=== PATIENT | male | born 1960 | race Caucasian/White ===

== ENCOUNTER 2025-02-12 21:04 | Emergency (ER) | payer OTHER, SELFPAY ==
[2025-02-12 21:17] VITALS: BP 188/88; PULSE 90; RESP 18; TEMP 38.3; O2SAT 98; BMI 26.4
--- NOTE | 2025-02-12 22:00 | CRLHL7_ITS ---
For Patients: As a result of the Cures Act, medical imaging exams and procedure reports are released immediately into your electronic medical record. You may view this report before your referring provider. If you have questions, please contact your health care provider. INDICATION: Hematuria, fever TECHNIQUE: CT Abdomen and pelvis with i.v. contrast. Coronal and sagittal reformats were obtained. CONTRAST: 95 mL Isovue 370 COMPARISON: None FINDINGS: Lower chest: Mild bibasilar discoid atelectasis is seen. Liver: Unremarkable. Spleen: Unremarkable. Pancreas: Unremarkable. Gallbladder: Unremarkable. 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 The cyst measures up to 1.5 cm. These can be better assessed by outpatient CT urogram. Adrenal: Unremarkable. Bowel: The stomach, small bowel, and colon are unremarkable. The appendix is normal in appearance and size. Vascular: Unremarkable. Lymph: Unremarkable. Peritoneum: Unremarkable. No pneumoperitoneum is seen. No significant ascites is noted. Pelvis: Moderate diffuse bladder wall thickening is noted. A fat containing left inguinal hernia is noted. Soft tissue: Unremarkable. Bone: Unremarkable for age. IMPRESSION: 1. Moderate diffuse bladder wall thickening is noted. This may be due to urinary tract infection or cystitis. Dictated by Aman Carpio MD @ 02/12/2025 11:02:46 PM Please note that all CT scans at this facility use dose modulation, iterative reconstruction, and/or weight-based dosing when appropriate to reduce radiation dose to as low as reasonably achievable. Dictated by: Aman Carpio MD @ 02/12/2025 23:02:50 (Electronically Signed)
[2025-02-12 22:02] LABS: Appearance Urine Clear (Clear); Bilirubin Urine Negative (Negative); Blood Urine 3+ (Negative); Color Urine Yellow (Yellow); Glucose Urine Negative (Negative); Ketones Urine Negative (Negative); Leukocyte Esterase Urine Trace (Negative); Nitrite Urine Negative (Negative); Protein Urine 3+ (Negative); Specific Gravity Urine 1.025 (1.000-1.030); Urobilinogen Urine 0.2 (0.2-1.0)
--- NOTE | 2025-02-12 22:06 | ED_ITS ---
HPI - Male Genitourinary General Date Seen: 02/12/25 Chief complaint: Urogenital Problems, Male Stated complaint: fever, blood in urine Time Seen by Provider: 02/12/25 21:55 Source: patient Mode of arrival: ambulatory Limitations: no limitations History of Present Illness HPI Narrative: Patient is a 64-year-old male presenting to the emergency department for concerns of hematuria, dysuria and fevers. States he started passing shirley blood in his urine tonight and has been having fevers and some dysuria. Was having no symptoms earlier today. Has never had symptoms like this before. No history of UTIs. No history of blood in his urine. Denies abdominal pain, flank pain, chest pain, shortness of breath, lightheadedness, dizziness, weakness, numbness, diarrhea, constipation. No history of smoking. No other concerns noted. Related Data Allergies Allergy/AdvReac Type Severity Reaction Status Date / Time Penicillins Allergy Mild Dizziness Verified 02/12/25 21:20 Review of Systems Status of ROS: Reports: 10 or more systems reviewed and unremarkable except as noted in History and below [facility] Medical History Type 2 diabetes mellitus ?E11.9 - Type 2 diabetes mellitus without complications (ICD-10) Hypertension ?I10 - Essential (primary) hypertension (ICD-10) Social History Smoking Status: Never smoker Second hand tobacco smoke exposure: No How often do you have a drink containing alcohol: never AUDIT-C Alcohol total score: 0 Non-prescribed substance use: denies use Exam Narrative: Exam Narrative: Const: Well-nourished, Well-developed, in no distress Eyes: PERRL, no conjunctival injection, and symmetrical lids HENT: Atraumatic external nose and ears. Moist mucous membranes. Neck: Symmetric, trachea midline, No thyromegaly. CVS: RRR, No murmurs or gallops. Peripheral pulses 2+ and equal in all extremities RESP: Unlabored respiratory effort. Clear to auscultation bilaterally. GI: Nontender/Nondistended, No rebound or guarding. MSK:Extremities w/o deformity, Normal Active ROM Skin: Warm, Dry. No rashes or lesions. Neuro: Normal Muscle tone, No focal neurological deficits. Psych: Awake, Alert, & Oriented x3. Appropriate mood and affect. Const: Vital Signs, click to edit/add: Vital Signs - 24 hr 02/12/25 21:17 02/12/25 22:13 Temperature 100.9 F H 100.9 F H Pulse Rate [Right Pulse Oximeter] 90 Respiratory Rate 18 Blood Pressure [Ri ght Upper Arm] 188/88 H Pulse Oximetry 98 Oxygen Delivery Me thod Room Air Course Vital Signs Vital signs: Initial Vital Signs Temperature 100.9 F H 02/12/25 21:17 Temperature Source Temporal Artery Scan 02/12/25 21:17 Pulse Rate 90 02/12/25 21:17 Respiratory Rate 18 02/12/25 21:17 Blood Pressure 188/88 H 02/12/25 21:17 Blood Pressure Mean 121 H 02/12/25 21:17 Blood Pressure Position Sitting 02/12/25 21:17 Pulse Oximetry 98 02/12/25 21:17 Oxygen Delivery Method Room Air 02/12/25 21:17 Vital Signs Temperature 100.9 F H 02/12/25 21:17 Pulse Rate 90 02/12/25 21:17 Respiratory Rate 18 02/12/25 21:17 Blood Pressure 188/88 H 02/12/25 21:17 Pulse Oximetry 98 02/12/25 21:17 Oxygen Delivery Method Room Air 02/12/25 21:17 Temperature 100.9 F H 02/12/25 22:13 Pulse Rate 90 02/12/25 21:17 Respiratory Rate 18 02/12/25 21:17 Blood Pressure 188/88 H 02/12/25 21:17 Pulse Oximetry 98 02/12/25 21:17 Oxygen Delivery Method Room Air 02/12/25 21:17 Medications Administered Medications: Discontinued Medications Generic Name Dose Route Start Last Admin Trade Name Freq PRN Reason Stop Dose Admin Acetaminophen 650 mg 02/12/25 22:00 02/12/25 22:13 Acetaminophen 325 Mg Tablet PO 02/12/25 22:01 650 mg ONCE ONE Administration MDM - Male Genitourinary MDM Narrative Medical decision making narrative: Patient is a 64-year-old male presenting for hematuria. With the fevers and dysuria most likely is a UTI but will do a CT scan to check for signs of bladder cancer other abnormalities. Will also do a CBC, BMP. Tylenol given for his fever. Patient's lab work returned with elevated white count 14. He now meets SIRS criteria. Due to this lactate and blood cultures were ordered. Patient otherwise appears well and I do not believe fluids are necessary. Urinalysis shows blood but no obvious signs of UTI. Rest was labs shows no concerning findings. CT scan reviewed by myself and the radiologist shows diffuse bladder thickening. With his history this is likely UTI. Patient will be started on antibiotics. Lab Data Labs: Lab Results 02/12/25 02/12/25 02/12/25 Range/Units 21:06 22:05 22:55 WBC 14.01 H (4.50-11.00) K/uL RBC 4.61 (4.30-5.90) m/uL Hgb 14.8 (13.5-17.5) gm/dL Hct 43.2 (37.0-53.0) % MCV 94 (80-100) fL MCH 32 (26-34) pg MCHC 34 (32-36) gm/dL RDW Coeff of Jovani 12.3 (11.5-15.5) % Plt Count 237 (140-440) K/uL Neut % (Auto) 81.4 H (42.0-72.0) % Lymph % (Auto) 9.8 L (20-44) % [place] % (Auto) 8.2 (0.0-11.0) % Eos % (Auto) 0.1 (0.0-7.0) % Baso % (Auto) 0.3 (0.0-3.0) % Neut # (Auto) 11.40 H (1.7-7.0) K/uL Lymph # (Auto) 1.40 (0.90-2.90) K/uL [place] # (Auto) 1.10 H (0.00-0.90) K/UL Eos # (Auto) 0.00 (0.00-0.50) K/uL Baso # (Auto) 0.00 (0.00-0.30) K/uL Abs Immat Gran (auto) 0.00 (0.00-0.30) K/uL Imm/Tot Granulo (auto) 0.2 % Sodium 134 L (135-149) mmol/L Potassium 3.9 (3.6-5.1) mmol/L Chloride 99 (96-114) mmol/L Carbon Dioxide 28 (20-32) mmol/L Anion Gap 7 (7-15) mEq/L BUN 15 (7-30) mg/dL Creatinine 0.8 (0.5-1.5) mg/dL Estimated Creat Clear 80.83 Estimated GFR 98 ml/min Glucose 142 H (60-115) mg/dL Lactate 0.8 (0.5-1.9) mmol/L Calcium 8.5 (8.4-10.6) mg/dL Urine Color Yellow (Yellow) Urine Appearance Clear (Clear) Urine pH 7.0 (5.0-8.5) Ur Specific [place] 1.025 (1.000-1.030) Urine Protein 3+ A (Negative) Urine Glucose (UA) Negative (Negative) Urine Ketones Negative (Negative) Urine Blood 3+ A (Negative) Urine Nitrite Negative (Negative) Urine Bilirubin Negative (Negative) Urine Urobilinogen 0.2 (0.2-1.0) Ur Leukocyte Esterase Trace A (Negative) Urine RBC >100 A (0-2) Urine WBC 2-5 (0-5) Ur Squamous Epith Cells Few (None-Few) Urine Bacteria Few A (None) POC Creatinine 1.0 (0.6-1.3) mg/dl Imaging Data CT scan abdomen and pelvis: Attestation: I have reviewed the pertinent imaging results. Radiologist's impression: 1. Moderate diffuse bladder wall thickening is noted. This may be due to urinary tract infection or cystitis. Dictated by Aman Carpio MD @ 02/12/2025 11:02:46 PM Please note that all CT scans at this facility use dose modulation, iterative reconstruction, and/or weight-based dosing when appropriate to reduce radiation dose to as low as reasonably achievable. Dictated by: Aman Carpio MD @ 02/12/2025 23:02:50 Discharge Plan Discharge Clinical Impression: Urinary tract infection Qualifiers: Urinary tract infection type: acute cystitis Hematuria presence: with hematuria Qualified Code(s): N30.01 - Acute cystitis with hematuria Patient Disposition: Home, Self-Care Condition: Stable Instructions: Urinary Tract Infection in Men (ED) Additional Instructions: Take Tylenol for fever. Take antibiotics as prescribed. 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 Return to emergency department for new worsening symptoms. Follow Up/Referrals: Clay Mathias MS [Primary Care Provider] - Stand Alone Forms: [employer] Info Instructions
[2025-02-12 22:09] LABS: RBC Urine >100 (0-2)
[2025-02-12 22:10] LABS: Bacteria Urine Few; Squamous Epithelial Cell Urine Few (None-Few)
[2025-02-12 22:13] VITALS: TEMP 38.3
[2025-02-12] MEDS: ACETAMINOPHEN 325 MG TABLET 650 MG PO (22:13)
[2025-02-12 22:14] LABS: Basophils Percent Auto 0.3 % (0.0-3.0); Eosinophils Percent Auto 0.1 % (0.0-7.0); Hematocrit 43.2 % (37.0-53.0); Hemoglobin* 14.8 gm/dL (13.5-17.5); Immature Granulocytes Pct Auto 0.2 %; Lymphocytes Percent Auto 9.8 % (20-44); Mean Corpuscular HGB Conc 34 gm/dL (32-36); Mean Corpuscular Hemoglobin 32 pg (26-34); Mean Corpuscular Volume 94 fL (80-100); Monocytes Percent Auto 8.2 % (0.0-11.0); Neutrophils Percent Auto 81.4 % (42.0-72.0); Platelet Count* 237 K/uL (140-440); RDW Coefficient of Variation % 12.3 % (11.5-15.5); Red Blood Count 4.61 m/uL (4.30-5.90); White Blood Count* 14.01 K/uL (4.50-11.00)
[2025-02-12 22:15] LABS: Slide Review Reflex No
--- OUTSIDE RECORDS SUMMARY | 2025-02-12 22:23 | XMS_ITS | Clinical Summary ---
Author Organization [facility] Address [address] [place] [id number] Care Team Providers Care Scanner Supervisor Name Role Phone Jason Arroyo MD Primary Care Provider Allergies Active Allergy Reactions Criticality Noted Date Comments Penicillins Dizziness 02/18/2009 Medications HYDROcodone-ac etaminophen (NORCO) 5-325 mg per tabletIndicati ons:Malignant melanoma of lower back (HC) Take 1-2 Tablets by mouth every 4 hours if needed for Pain. Max acetaminophen dose: 4000 mg in 24 hrs. 20 Tablet 12/14/2022 11:08 AM [employer] 3 Active Active Problems Problem Noted Date Diagnosed Date Malignant melanoma of lower back 12/14/2022 Social History Tobacco Use Types Packs/Day Years Used Date Smoking Tobacco: Some Days Cigarettes Cigars Smokeless Tobacco: Never Tobacco Cessation:Ready to Q uit: Not Asked; Counseling Given: Not Answered Alcohol Use Standard Drinks/Week Comments Not Asked 0 (1 standard drink = 0.6 oz pur e alcohol) once a week Sex and Gender Information Value Date Recorded Sex Assigned at Not on file Legal Sex Male 6:53 AM [employer] Gender Identity Not on file Sexual Orientation Not on file Obstetrics History Last Filed Vital Signs Vital Sign Reading Time Taken Comments Blood Pressure 129/76 12/14/2022 12:15 PM [employer] Pulse 68 12/14/2022 12:15 PM [employer] Temperature 36 C (96.8 F) 12/14/2022 12:15 PM [employer] Respiratory Rate 16 12/14/2022 12:15 PM [employer] Oxygen Saturation 91% 12/14/2022 12:15 PM [employer] Inhaled Oxygen Concentration - - Weight 89.4 kg (197 lb) 12/14/2022 9:04 AM [employer] Height 182.9 cm (6') 12/14/2022 9:04 AM [employer] Body Mass Index 26.72 12/14/2022 9:04 AM [employer] TE[employer] Plan of Treatment Not on file Advance Directives * Full Code (Latest Code Status on File) Date Activated Date Inactivated Comments 12/14/2022 8:45 AM 12/14/2022 3:06 PM Question Answer Comments Code Status Discussion: Other not disc ussed * Full Code Date Activated Date Inactivated Comments 02/19/2009 1:12 PM 02/19/2009 4:56 PM * Full Code Date Activated Date Inactivated Comments 02/19/2009 11:25 AM 02/19/2009 1:12 PM Care Teams Scanner Supervisor Relationship Specialty Start Date End Date Jason Arroyo MD [address] [place] [address] PCP - General 02/15/09
--- OUTSIDE RECORDS SUMMARY | 2025-02-12 22:23 | XMS_ITS ---
Author Name Interface, [id number] lity Address [address] [facility] [address] [address] Organization [facility] Address [facility] [facility] [address] [place] [address] Care Team Providers Care Community Service Officer Coordinator Name Role Phone BozenaShannanMaricarmen Unavailable Unavailable Allergies and Adverse Reactions Medication/Group Name Reaction Severity Date Penicillins Moderate to severe Plan Date Type Value 08/02/2023 APPOINTMENT OV 15 MIN Reason for Visit OV 15 MIN Encounters Date Name 08/02/2023 Melanoma Medications Date Name Route Dose Frequency Instructions Start Date End Date Status Metformin Oral ac tive Problems Diagnosis Status Date of Diagnosi s Melanoma Active Vital Signs Date Type Value 08/02/2023 Height 70.00 08/02/2023 Pain Scale 0.00
--- OUTSIDE RECORDS SUMMARY | 2025-02-12 22:23 | XMS_ITS ---
Author Name Interface, [id number] lity Address [address] [facility] [address] [address] Organization [facility] Address [address] [facility] [address] [address] Care Team Providers Care Irrigation Equipment Installer Name Role Phone Marla Membreno Unavailable Unavailab le Allergies and Adverse Reactions Medication/Group Name Reaction Severity Date Penicillins Moderate to severe Plan Date Type Value 08/02/2023 APPOINTMENT OV 15 MIN 07/22/2023 APPOINTMENT OV 15 MIN 07/19/2023 APPOINTMENT OV 10 MIN 07/05/2023 APPOINTMENT OV 10 MIN 01/04/2023 APPOINTMENT POST OP 10 MIN 01/04/2023 APPOINTMENT SURGERY 1.5 HR Reason for Visit OV 15 MIN Encounters Date Name 01/04/2023 Melanoma Medications Date Name Route Dose Frequency Instructions Start Date End Date Status Metformin Oral ac tive Problems Diagnosis Status Date of Diagnosi s Melanoma Active Vital Signs Date Type Value 01/04/2023 Pain Scale 0.00 01/04/2023 Height 70.00 08/02/2023 Pain Scale 0.00 08/02/2023 Height 70.00
--- OUTSIDE RECORDS SUMMARY | 2025-02-12 22:23 | XMS_ITS ---
Author Organization [facility] S Address [address] [id number] Care Team Providers Care Freelance Court Reporter Name Role Phone Jason Arroyo MD Primary Care Provider Shadi Mathias [phone] Allergies Allergen (clinical drug ingredient) Drug/Non Drug Allergy documented on EMR Reaction Allergy Type Onset Date Status penicillin V Penicillin V Potassium DIZZINESS Drug Allergy Active Results Component Value Reference Range Notes Basic Metabolic Profile Reviewed date:07/18/2024 10:16:25 AM Interpretation: Performing Lab: Notes/Report: Sodium 142 135-145 mmol/L Potassium 4.3 3.4-5.3 mmol/L Chloride 105 98-107 mmol/L Carbon Dioxide (CO2) 26 22-29 mmol/L Anion Gap 11 7-15 mmol/L Urea Nitrogen 17.3 8.0-23.0 mg/dL Creatinine 0.76 0.67-1.17 mg/dL GFR Estimate >90 >60 mL/min/1.73m2 eGFR calcu lated using 2020 CKD-EPI equation. Calcium 9.0 8.8-10.4 mg/dL Reference int ervals for this test were updated on 05/23/2024 to reflect our healthy population more accurately. There may be differences in the flagging of prior results with similar values performed with this method. Those prior results can be interpreted in the context of the updated reference intervals. Glucose 146 70-99 mg/dL PERFORMED BY: [facility], [place], [place] [address] [place] [id number],[facility] [id number] . Patient Fasting > 8hrs? Unknown GLYCOSYLATED HGB A1C Reviewed date:07/17/2024 08:32:29 AM Interpretation:6.8 Performing Lab: Notes/Report: Lipid [place] Reviewed date:07/18/2024 10:16:49 AM Interpretation: Performing Lab: Notes/Report: [place] [id number],[facility] [id number] [phone]. [address] [place] [address] PERFORMED BY: [facility] Very High: >= 220 mg/dL High: 190 - 219 mg/dL Borderline High: 160 - 189 mg/dL Above Desirable: 130 - 159 mg/dL Desirable: < 130 mg/dL Non HDL Cholesterol Very High: >= 190 mg/dL High: 160 - 189 mg/dL Borderline High: 130 - 159 mg/dL Above Desirable: 100 - 129 mg/dL Desirable: < 100 mg/dL LDL Cholesterol Male: >= 40 mg/dL Female: >= 50 mg/dL Direct Measure HDL Very High: >= 500 mg/dL High: 200-499 mg/dL Borderline High: 150 - 199 mg/dL Normal: < 150 mg/dL Triglycerides High: >= 240 mg/dL Borderline High: 200 - 239 mg/dL Desirable: < 200 mg/dL Cholesterol Cholesterol 227 <200 mg/dL Triglycerides 69 <150 mg/dL Direct Measure HDL 66 >=40 mg/dL LDL Cholesterol Calculated 147 <100 mg/dL Non HDL Cholesterol 161 <130 mg/dL Patient Fasting > 8hrs? Unknown Albumin Quantitative Random Urine Reviewed date:07/18/2024 10:15:58 AM Interpretation: Performing Lab: Notes/Report: Creatinine Urine mg/dL 92.3 The r eference ranges have not been established in urine creatinine. The results should be integrated into the clinical context for interpretation. Albumin Urine mg/L <12.0 The refer ence ranges have not been established in urine albumin. The results should be integrated into the clinical context for interpretation. Albumin Urine mg/g Creat Unable to calculate, urine albumin and/or urine creatinine is outside detectable limits. Microalbuminuria is defined as an albumin:creatinine ratio of 17 to 299 for males and 25 to 299 for females. A ratio of albumin:creatinine of 300 or higher is indicative of overt proteinuria. Due to biologic variability, positive results should be confirmed by a second, first-morning random or 24-hour timed urine specimen. If there is discrepancy, a third specimen is recommended. When 2 out of 3 results are in the microalbuminuria range, this is evidence for incipient nephropathy and warrants increased efforts at glucose control, blood pressure control, and institution of therapy with an gjeyihdcsjy-ekiottwuyp-defork (TOD) inhibitor (if the patient can tolerate it). PERFORMED BY: [facility], [place] [id number] [place] [id number],[facility] [id number] . REASON FOR VISIT diabetic/hypertension check, not on medicare Medications Medication SIG (Take, Route, Frequency, Duration) Notes Start Date End Date Status Cialis 20 MG 1 tab(s) orally as needed 08/05/2011 Active Losartan Potassium 25 MG 1/2 tablet Oral ly Once a day for 90 days 01/27/2024 Active Accu-Chek Guide - as directed In Vitro Tests once a day for 30 days Dx E11.65 01/20/2023 Active Accu-Chek FastClix Lancets - as directed Tests once a day for 30 days Dx E11.65 01/20/2023 Active metFORMIN HCl ER 500 MG 1 tablet with ev ening meal Orally Once a day for 90 days 12/18/2022 Active Social History Tobacco Use: Social History Observation Description Date Details (start date - stop date) Current some da y smoker NA - NA Tobacco Status Question Answer Notes I am: current some day smoker Occasion salina cigar Vital Signs Height 71 in 07/17/2024 Weight 187 lbs 07/17/2024 BMI 26.08 kg/m2 07/17/2024 Blood pressure systolic 145 mm Hg 07/17/20 24 Blood pressure diastolic 98 mm Hg 024 Oximetry 99 07/17/2024 Encounters Encounter Location Date Provider Diagnosis [facility] [address], [place] [id number] 07/17/2024 Shadi Mathias Type 2 diabetes comfort itus with hyperglycemia, without long-term current use of insulin E11.65 ; Mixed hyperlipidemia E78.2 and Essential (primary) hypertension I10 Assessments Encounter Date Diagnosis (ICD Code) Assessment Notes Treatment Notes Treatment Clinical Notes Section Notes 07/17/2024 Type 2 diabetes mellitus with hyperglycemia, without long-term current use of insulin (ICD-10 - E11.65) A1c still at goal at 6.8%. Continue metformin at the current dose. We discussed exercise and weight loss. Follow-up again in 6 months. Will be due for routine diabetic lab work at that time. 07/17/2024 Mixed hyperlipidemia (ICD-10 - E78.2) patient declines statin. Lipid check today 07/17/2024 Essential (primary) hypertension (ICD-10 - I10) Persistently high blood pressure here in clinic, even on MD recheck. White coat syndrome. He does not have blood pressure cuff at home; recommended he get ont to monitor his blood pressures at home. Continue losartan Plan Of Treatment Medication Medication Name Sig Start Date Stop Date Notes Losartan Potassium 25 MG 1/2 tablet Oral ly Once a day for 90 days 01/27/2024 Treatment Notes Assessment Notes Type 2 diabetes mellitus wit h hyperglycemia, without long-term current use of insulin A1c still at goal at 6.8%. Continue metformin at the current dose. We discussed exercise and weight loss. Follow-up again in 6 months. Will be due for routine diabetic lab work at that time. Mixed hyperlipidemia patient declines st atin. Lipid check today Essential (primary) hypertension Persist ently high blood pressure here in clinic, even on MD recheck. White coat syndrome. He does not have blood pressure cuff at home; recommended he get ont to monitor his blood pressures at home. 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 Blood sugars 1 20s. Diet A fter meeting with chemical educator, he completely revamped his diet. Completely cut out after meeting with chemical educator, he completely revamped his diet. Completely cut out pop, pop, decreased bread intake and decreased candy intake.. Medication compliance t aking as directed . Last eye exam i s scheduling . H ypertension: Patient states that he does not have history of HTN despite PL. He states situational HTN in clinic. Does not take at home. * Medical History: * Surgical History: l esion removal from back, melanoma wisdom teeth extraction melanoma removal 12/14/22 * Hospitalization/Major Diagno stic Procedure: N o Hospitalization History. * Family History: F ather: 87 yrs, CAD in 60's, legally blind, hypertension, cancer, prostate and colon cancer. M other: alive 86 yrs. S iblings: Parkinson's. P aternal Grand Father: 77 yrs, arthritis. P aternal Grand Mother: 77 yrs, heart attack. M aternal Grand Father: 63 yrs, heart attack. M aternal Grand Mother: 94 yrs, natural. 2 brother(s) , 1 sister(s) . 3 son(s) , 2 daughter(s) - healthy. . one brother with parkinson's, PT has five children, sister with heart murmur. * Social History: T obacco Status I am: c urrent some day smoker Occasionaly cigar type of tobacco c igars education, tobacco N o advised to quit N o M arital Status: . E xercise: no exercise outside of work. C affeine: 1-2 cans per day. A lcohol: 1 per week, CAGE negative. O ccupation: shelter. * Medications: T akingAccu-Chek FastClix Lancets - Miscellaneous as directed Tests once a day , Notes to Pharmacist: Dx E11.65Accu-Chek Guide - Strip as directed In Vitro Tests once a day , Notes to Pharmacist: Dx E11.65Cialis 20 MG Tablet 1 tab(s) orally as needed Losartan Potassium 25 MG Tablet 1/2 tablet Orally Once a day metFORMIN HCl ER 500 MG Tablet Extended Release 24 Hour 1 tablet with evening meal Orally Once a day Medication List reviewed and reconciled with the patientTaking Accu-Chek FastClix Lancets - Miscellaneous as directed Tests once a day , Notes to Pharmacist: Dx E11.65Taking Accu-Chek Guide - Strip as directed In Vitro Tests once a day , Notes to Pharmacist: Dx E11.65Taking Cialis 20 MG Tablet 1 tab(s) orally as needed Taking Losartan Potassium 25 MG Tablet 1/2 tablet Orally Once a day Taking metFORMIN HCl ER 500 MG Tablet Extended Release 24 Hour 1 tablet with evening meal Orally Once a day Medication List reviewed and reconciled with the patient * Allergies: P enicillin V Potassium: DIZZINESSno[Allergies Verified] Objective: * Vitals: H t: 71, Wt:187, BMI:26.08, Pulse:80, BP: 210/120,162/100,145/98, Arm / Cuff size: large:left, Resp:14, Pulse Oximetry:99, Comments HT/WT: w/shoes, Initials: CL, Percent Weight Change: -2.5%. * Examination: G eneral Examination: General Appearance: n o acute distress, pleasant. Eyes: c onjunctiva clear. Heart: r ate normal, rhythm regular, no murmurs, S3 or S4.? Lungs: b ilaterally clear to auscultation, no wheezes, rhonchi or rales. Skin: n o rashes or exanthems noted on visible skin. Extremities n o edema . Neurological: A ppropriate affect, Gait normal . Assessment: * Assessment: 1. T ype 2 diabetes mellitus with hyperglycemia, without long-term current use of insulin - E11.65 (Primary) 2 . M ixed hyperlipidemia - E78.2 3 . E ssential (primary) hypertension - I10 Plan: * Treatment: Value Reference Range G lycosylated Hemoglobin A1c % 6.8 H 4.2 - 6.1 - % * Tiffani Merida CMA 024 08:01:47 AM > Transmitted to Shadi Adame 07/17/2024 08:32:22 AM > Informed at visit ?LAB: Albumin Quantitative Random Urine (Collection Date & Time - 07/17/2024 08:31 AM)* Value Reference Range C reatinine Urine mg/dL 92.3 - mg/dL * A lbumin Urine mg/L <12.0 - mg/L * Maura Flowers 07/17/2024 08: 32:03 AM > Transmitted to [facility] Dear Fito--Attached are the lab results from your recent visit:- Kidney function is normal on blood and urine tests.- Cholesterol has improved. Continue good work with diet and exercise. With diabetes would still recommend that we start a cholesterol lowering medication.Please reach out with any questions you have.Sincerely,Dina Morris Shannon 07/18/2024 10:15:47 AM > Report mailed to patient. Notes: A1c still at goal at 6.8%. Continue metformin at the current dose. We discussed exercise andweight loss. Follow-up again in 6 months. Will be due for routine diabetic lab work at that time. ?2.?Mixed hyperlipidemia?LAB: Lipid [place] (Collection Date & Time - 07/17/2024 08:31 AM)* Value Reference Range L DL Cholesterol, Calculated 147 H <100 - mg/dL * H DL Cholesterol 66 >=40 - mg/dL * T riglycerides 69 <150 - mg/dL * C holesterol 227 H <200 - mg/dL * N on HDL Cholesterol 161 H <130 - mg/dL * Maura Flowers 07/17/2024 08: 32:03 AM > Transmitted to [facility] Dear Fito--Attached are the lab results from your recent visit:- Kidney function is normal on blood and urine tests.- Cholesterol has improved. Continue good work with diet and exercise. With diabetes would still recommend that we start a cholesterol lowering medication.Please reach out with any questions you have.Sincerely,Dina Morris Shannon 07/18/2024 10:16:39 AM > Report mailed to patient. Notes: patient declines statin. Lipid check today??3.?Essential (primary) hypertension? Refill Losartan Potassium Tablet, 25 MG, 1/2 tablet, Orally, Once a day, 90 days, 90, Refills 3. ?LAB: Basic Metabolic Profile (Collection Date & Time - 07/17/2024 08:31 AM) * Value Reference Range S odium 142 135-145 - mmol/L * P otassium 4.3 3.4-5.3 - mmol/L * C reatinine 0.76 0.67-1.17 - mg/dL * B UN 17.3 8.0-23.0 - mg/dL * C hloride 105 98-107 - mmol/L * C O2, Total 26 22-29 - mmol/L * A nion Gap, Calculated 11 7-15 - mmol/L * G lucose 146 H 70-99 - mg/dL * G FR, Estimated >90 >60 - mL/min/1.73m2 * C alcium 9.0 8.8-10.4 - mg/dL * Maura Flowers 07/17/2024 08: 32:03 AM > Transmitted to [facility] Dear Fito--Attached are the lab results from your recent visit:- Kidney function is normal on blood and urine tests.- Cholesterol has improved. Continue good work with diet and exercise. With diabetes would still recommend that we start a cholesterol lowering medication.Please reach out with any questions you have.Sincerely,Dina Morris Shannon 07/18/2024 10:16:14 AM > Report mailed to patient. Notes: Persistently high blood pressure here in clinic, even on MD recheck. White coat syndrome. Aris not have blood pressure cuff at home; recommended he get ont to monitor his blood pressures athome. Continue losartan?? * Procedure Codes: 8 3036 GLYCATED HEMOGLOBIN [id number] GLYCATED HEMOGLOBIN [id number] CAPILLARY BLOOD [id number] LIPID PANEL-CHOL SERUM,TOTAL,LIPOROTEIN,DIRECT MEASURE,HDL CHOL,TRIG,[id number] VENIPUNCT, [id number] MICROALBUMIN, [id number] BASIC METABOLIC PANEL * * Sign off status: Completed true * Provider: Adrian Mathias MD Date: 0 07/17/2024 Generated for Taras mark/Janak/Oren on: 0 02/12/2025 10:23 PM CDT History and Physical Notes * HPI (History of Present Illness) Category Sub-Category Detail Notes Category Not es Diabetes Diet After meeting wi chemical educator, he completely revamped his diet. Completely cut out after meeting with chemical educator, he completely revamped his diet. Completely cut out pop, pop, decreased bread intake and decreased candy intake. Blood sugars 120s Last eye exam is scheduling Medication compliance taking as directed Examination Category Sub-Category Detail Notes Category Not es General Examination Heart: rate normal, rhythm regular, no murmurs, S3 or S4 Lungs: bilaterally clear to auscultation, no wheezes, rhonchi or rales Extremities no edema General Appearance: no acute distress, p leasant Skin: no rashes or exanthe ms noted on visible skin Eyes: conjunctiva clear Neurological: Appropriate affect, Gait normal
--- OUTSIDE RECORDS SUMMARY | 2025-02-12 22:23 | XMS_ITS | CCD ---
Author Name Interface, N5Vsfvodz lity Address [address] [facility] [address] [address] [facility] Address [address] [address] [place] [address] Care Team Providers Care Cosmetologist Name Role Phone Roge Landry Unavailable Unavailable Marla Membreno Unavailable Unavailab le Reason for Visit OV 15 MIN Encounters Date Name 08/02/2023 Melanoma Medications Date Name Route Dose Frequency Instructions Start Date End Date Status Metformin Oral ac tive Problems Diagnosis Status Date of Diagnosi s Melanoma Active Social History Date Name Value 12/10/2022 Sex Male
[2025-02-12 22:32] LABS: Chloride* 99 mmol/L (96-114); Potassium* 3.9 mmol/L (3.6-5.1); Sodium* 134 mmol/L (135-149)
[2025-02-12 22:35] LABS: Anion Gap 7 mEq/L (7-15); Blood Urea Nitrogen* 15 mg/dL (7-30); Calcium* 8.5 mg/dL (8.4-10.6); Carbon Dioxide* 28 mmol/L (20-32); Creatinine* 0.8 mg/dL (0.5-1.5); Est. Creatinine Clearance* 80.83; Estimated Glomerular Filt Rate 98 ml/min; Glucose* 142 mg/dL (60-115)
[2025-02-12 23:06] LABS: Lactate Sepsis w/Reflex* 0.8 mmol/L (0.5-1.9)
[2025-02-12 23:20] VITALS: BP 165/79; PULSE 85; RESP 18; TEMP 37.5; O2SAT 98
[2025-02-12 23:21] VITALS: BP 165/79; PULSE 85; RESP 18; TEMP 37.5
== END 2025-02-12 23:21 | disposition home or self-care (01) ==
PROVIDERS: Emergency Provider Student in an Organized Health Care Education/Training Program; PCP Pediatrics
DX: N39.0 Urinary tract infection, site not specified (principal)
CPT/HCPCS: 36415; 74177; 80048; 81001; 82565; 83605; 85025; 87040; 87086; 99284; A9270; Q9967